=== PATIENT | male | born 1985 | race Two or more races ===

== ENCOUNTER 2024-11-23 14:39 | Emergency (ER) | payer SELFPAY ==
[~2024-11-23] VITALS: Ht 172.7 cm; Wt 111.2 kg
[2024-11-23 15:00] VITALS: PULSE 82; RESP 20; TEMP 97.8
[2024-11-23] MEDS ORDERED: HYDROCHLOROTHIA25 MG (15:27)
[2024-11-23] MEDS ORDERED: EFFEXOR XR 3737.5 MG PO (15:27)
[2024-11-23] MEDS ORDERED: LAMICTAL100 MG PO (15:27)
[2024-11-23 16:18] VITALS: BP 137/96; PULSE 80; RESP 20; TEMP 97.8; O2SAT 100
== END 2024-11-23 16:20 | disposition home or self-care (01) ==
LOC: FSED 14:47
DX: R20.2 Paresthesia of skin (principal); M54.2 Cervicalgia; M53.82 Other specified dorsopathies, cervical region; W86.0XXA Exposure to domestic wiring and appliances, initial encounter; Y92.89 Other specified places as the place of occurrence of the external cause; I10 Essential (primary) hypertension; F32.A Depression, unspecified
CPT/HCPCS: 81003; 93005; 99284